=== PATIENT | female | born 2000 | race Two or more races ===

== ENCOUNTER 2025-03-26 01:34 | Emergency (ER) | payer MEDICAID ==
[~2025-03-26] VITALS: Ht 162.6 cm; Wt 70.3 kg
[2025-03-26 01:59] VITALS: TEMP 98.3
[2025-03-26 02:34] LABS: APPEARANCE,URINE CLEAR (CLEAR); BILIRUBIN,URINE NEGATIVE (NEGATIVE); BLOOD, URINE NEGATIVE Ery/uL (NEGATIVE); COLOR,URINE YELLOW (YELLOW); KETONES,URINE NEGATIVE (NEGATIVE); LEUKOCYTE ESTERASE ,URINE NEGATIVE (NEGATIVE); NITRITE, URINE NEGATIVE (NEGATIVE); PROTEIN,URINE TRACE mg/dl (NEGATIVE); UGLUCOSE NEGATIVE (NEGATIVE)
[2025-03-26 02:38] LABS: BASOPHILS # (AUTO) 0.1 K/uL (0.0-0.2); BASOPHILS % (AUTO) 0.7 % (0.0-2.0); EOSINOPHILS # (AUTO) 0.1 K/uL (0.0-0.7); EOSINOPHILS % (AUTO) 1.4 % (0.0-6.0); HEMATOCRIT 48 % (33-45); HEMOGLOBIN 15.8 g/dL (11.5-14.8); LYMPHOCYTES # (AUTO) 2.9 K/uL (0.8-4.8); MEAN CORPUSCULAR HEMOGLOBIN 29 PG (26.0-33.0); MEAN CORPUSCULAR HGB CONC 33 g/dl (31.0-36.0); MEAN CORPUSCULAR VOLUME 87 fL (82-100); MONOCYTES # (AUTO) 0.9 K/uL (0.1-1.30); MONOCYTES % (AUTO) 12.9 % (2.0-12.0); NEUTROPHILS # (AUTO) 3.2 K/uL (1.8-8.9); PLATELET COUNT (AUTO) 351 K/uL (150-450); RED BLOOD CELL COUNT(AUTO) 5.51 MIL/uL (4.0-5.2); RED CELL DISTRIBUTION WIDTH 14.7 % (11.5-15.0); WHITE BLOOD COUNT (AUTO) 7.1 K/uL (4.3-11.0)
[2025-03-26 02:45] LABS: PREGNANCY TEST URINE QUAL NEGATIVE (NEGATIVE)
[2025-03-26 02:47] LABS: AMPHETAMINE, URINE NEGATIVE (NEGATIVE); BARBITURATE, URINE NEGATIVE (NEGATIVE); BENZODIAZEPINE, URINE NEGATIVE (NEGATIVE); CANNABINOID, URINE POSITIVE (NEGATIVE); COCCAINE, URINE POSITIVE (NEGATIVE); OPIATE, URINE NEGATIVE (NEGATIVE); PHENCYCLIDINE SCREEN,URINE NEGATIVE (NEGATIVE)
[2025-03-26 02:47] LABS: CALCIUM, SERUM 9.2 mg/dL (8.5-10.1); CARBON DIOXIDE 26 mmol/L (21-32); CHLORIDE 106 mmol/L (98-107); CREATININE 0.8 mg/dL (0.6-1.3); GLUCOSE 117 mg/dL (74-106); POTASSIUM 3.5 mmol/L (3.5-5.1); SODIUM SERUM 143 mmol/L (136-145); UREA NITROGEN, BLOOD 6 mg/dL (7-18)
[2025-03-26 02:53] LABS: ALANINE AMINOTRANSFERASE 316 U/L (12-78); ALBUMIN 4.1 g/dL (3.4-5.0); ALCOHOL, BLOOD 294 mg/dL (0-10); ALKALINE PHOSPHATASE 93 U/L (46-116); ASPARTATE AMINOTRANSFERASE 222 U/L (15-37); BILIRUBIN,DIRECT 0.1 mg/dL (0.0-0.2); BILIRUBIN,TOTAL 0.3 mg/dL (0.2-1.0); TOTAL PROTEIN, SERUM 8.6 g/dL (6.4-8.2)
[2025-03-26 02:54] LABS: ACETAMINOPHEN <10 ug/ml (10-30); SALICYLATE 0.9 mg/dL (2.8-20.0)
[2025-03-26 03:04] LABS: BACTERIA,URINE Many /HPF (None Seen); SQUAMOUS EPITHELIAL CELL,UR Moderate /HPF (None Seen)
[2025-03-26 03:05] LABS: ADD URINE CULTURE YES
[2025-03-26] MEDS ORDERED: LORAZEPAM 1 MG TABLET ONE (05:10)
[2025-03-26] MEDS ORDERED: ACETAMINOPHEN 325 MG TABLET ONE (05:11)
[2025-03-26] MEDS: LORAZEPAM 1 MG TABLET PO ONE (05:14)
[2025-03-26] MEDS: ACETAMINOPHEN 325 MG TABLET PO ONE (05:15)
[2025-03-26] MEDS ORDERED: IBUPROFEN 600 MG TABLET ONE (09:14)
[2025-03-26] MEDS: IBUPROFEN 600 MG TABLET PO ONE (09:18)
[2025-03-26 11:29] VITALS: BP 110/75; O2SAT 97
== END 2025-03-26 11:15 ==
LOC: ER 01:45
DX: R45.1 Restlessness and agitation (principal); R45.851 Suicidal ideations; F10.129 Alcohol abuse with intoxication, unspecified; F14.10 Cocaine abuse, uncomplicated; F32.A Depression, unspecified; F41.9 Anxiety disorder, unspecified; Z20.822 Contact with and (suspected) exposure to COVID-19; Y90.8 Blood alcohol level of 240 mg/100 ml or more
CPT/HCPCS: 36415; 80048-TC; 80076-TC; 81001; 84703-TC; 85025-TC; 87086-TC; G0480